=== PATIENT | male | born 1990 | race Caucasian/White ===

== ENCOUNTER 2019-12-29 20:44 | Emergency (ER) | payer OTHER ==
[~2019-12-29] VITALS: Ht 177.8 cm; Wt 72.6 kg
[2019-12-29 23:58] LABS: URINE BLOOD 1+ (Negative); URINE CLARITY CLEAR; URINE COLOR YELLOW; URINE GLUCOSE-RANDOM NEGATIVE (Negative); URINE KETONES 2+ (Negative); URINE LEUKOCYTES-REFLEX NEGATIVE (Negative); URINE NITRITE-REFLEX NEGATIVE (Negative); URINE PROTEIN TRACE (Negative); URINE SPECIFIC GRAVITY >= 1.030 (1.005-1.030)
[2019-12-30 00:01] LABS: ICTOTEST (BILI CONFIRMATORY) Negative (Negative); URINE BILIRUBIN 1+ (Negative)
[2019-12-30 00:03] LABS: HEMOGLOBIN 14.8 gm/dL (14.0-18.0); MCHC 34.4 g/dL (28.0-37.0); MCV 92.9 fL (80.0-100.0); MPV 8.2 fl. (7.2-11.1); RBC 4.62 mil/uL (4.50-6.00); RDW-CV 12.9 % (10.5-14.5)
[2019-12-30 00:24] LABS: CASTS None Seen /LPF (None Seen); CRYSTALS None Seen /LPF (None Seen); MUCUS >6 Heavy strn/LPF (None Seen); SQUAMOUS 0-3 Few /LPF (0-3); URINE RBC 3-10 Few /HPF (0-2); URINE WBC-REFLEX None Seen /HPF (0-5)
[2019-12-30 00:32] LABS: CREATININE 1.1 mg/dL (0.6-1.3); POTASSIUM 3.9 mmol/L (3.5-5.1)
[2019-12-30] MEDS ORDERED: ZOFRAN ODT4 MG DISSOLVE (01:35)
[2019-12-30] MEDS ORDERED: DOXYCYCLINE 10100 M2 PO (01:35)
[2019-12-30] MEDS ORDERED: FLOMAX0.4 MG PO (01:35)
[2019-12-30] MEDS ORDERED: NORCO 5-325 TA1 EAC2 PO (01:35)
[2019-12-30 02:20] VITALS: BP 110/50
== END 2019-12-30 02:20 | disposition home or self-care (01) ==
LOC: M.ERS 20:44
PROVIDERS: Emergency Medicine Emergency Medical Services
DX: U07.1 COVID-19 (principal); J18.9 Pneumonia, unspecified organism; N20.0 Calculus of kidney